=== PATIENT | male | born 1965 | race Caucasian/White ===

== ENCOUNTER 2025-03-30 21:35 | Emergency (ER) | payer OTHER, SELFPAY ==
[2025-03-30 21:37] VITALS: BP 139/82
[2025-03-30 21:47] VITALS: BP 141/97
--- NOTE | 2025-03-30 21:56 | ED.GENMED ---
History of Present Illness
General
Chief Complaint: Allergic Reaction
Source: patient
Time Seen by Provider: 03/30/25 21:49
History of Present Illness
History of Present Illness:
59-year-old male presents to the emergency room complaining of swelling of his face and lips which began about 2 hours ago. Over the past month or so the patient has been experiencing hives which come and go. They seem to appear different parts of
his body at different times. He was seen by a roll cutting operator to prescribe him a steroid, a cream of some sort as well as instructing him to take Benadryl and Claritin. Patient also prescribed Atarax recently. Medications have not seem to impact
the hives. However this evening is the first time he ever had swelling. He denies taking any medications for hypertension. He ate dinner about 2 hours prior to the onset of the facial swelling but denies consuming anything new or different.
Phy Exam
Physical Exam
Physical Exam:
General: Awake, Alert, Oriented X3. No acute distress.
Vitals: unremarkable
Head: Atraumatic
Eyes: Pupils equal, EOMI
Mouth: Mild angioedema noted both upper and lower lips.
Throat: Airway intact, no exudates, perhaps mild angioedema of the tongue
Neck: Trachea midline
Lungs: Clear and equal b/l
Heart: Regular rate, no murmurs
Abd: Soft, Nontender, No pulsatile mass
Neuro: Nonfocal
Skin: Warm, dry, urticarial rash noted upper and lower extremities and abdomen
Extremities: pulses equal b/l, no edema
Course
Orders/Labs/Results
Orders:
Orders
03/30/25 21:55
Electrocardiogram (*1) Stat
Reason for Study: Other
Other Reason for Exam: Allergy
Cardiac Monitoring- Treatment ONCE
EKG- Treatment ONCE
0.9% Sodium Chloride 500 ml [Nss] 500 ml IV BOLUS
Dexamethasone Sod Phosphate [Decadron] 10 mg IV NOW STA
Diphenhydramine [Benadryl] 50 mg IV NOW STA
EPINEPHrine PF [Adrenalin] 0.3 mg IM NOW STA
Famotidine [Pepcid] 20 mg IV NOW STA
03/30/25 22:08
Basic Metabolic Panel Urgent
Complete Blood Count/With Diff Urgent
Abnormal Lab Results
03/30/25
22:08
Glucose 100 H mg/dl
(70-99)
03/30/25 22:08
03/30/25 22:08
Vital Signs
Initial and Last Documented VS:
Initial Vital Signs
Temp Pulse Resp BP Pulse Ox
98.3 F 84 18 139/82 97
03/30/25 21:37 03/30/25 21:37 03/30/25 21:37 03/30/25 21:37 03/30/25 21:37
Last Documented Vital Signs
Temp Pulse Resp BP Pulse Ox
98.3 F 79 16 113/69 94
03/30/25 21:37 03/31/25 00:00 03/31/25 00:00 03/31/25 00:00 03/31/25 00:00
MDM/Problems Addressed
Differential Diagnosis Includes:
Angioedema from food allergy or medication allergy. Hereditary angioedema.
MDM/Problems Addressed:
Patient presents with mild angioedema of the upper and lower lip. Airway is patent arrival. He was given epi, Benadryl, Decadron and Pepcid. Patient had significant proved of his symptoms. He was observed for over 2 hours. He has been stable.
Patient will be discharged home. Prescription for an EpiPen sent to the pharmacy. Recommend he follow-up with an land development project manager. Return if his symptoms are worsening.
*Pulse Oximetry
Patient hypoxic: no
*Critical Care Note
Total Time (30-74mins, 75-104mins- exclusive of procedures): Not Applicable
ED Attending Note
-
Portions of this chart may have been created with voice recognition software.� Occasional wrong word or��sound alike� substitutions may have occurred due to the inherent limitations of voice recognition software.
Discharge Plan
Departure
Patient Disposition: Home (Routine Discharge)
Date of Disposition: 03/31/25
Time of Disposition: 00:15
Patient with high blood pressure during this ER visit?: No
Condition: Good
Discharge Problem:
[id number]
Instructions: Angioedema, Allergic reaction - ED discharge instructions
Prescriptions:
New
epinephrine [EpiPen 2-Arthur] 0.3 mg/0.3 mL auto-injector
0.3 mg IM Q5-15M PRN (Reason: anaphylaxis) Qty: 2 0RF
Referrals:
Jones Carmona MD [Family Provider] -
Rita Matson MD [Active] -
Activity Restrictions/Additional Instructions:
Call and make an appointment with Dr. Matson or one of her partner's CHANNING. Return to the ER if you feel your symptoms are worsening.
Interventions
Interventions:
*General Assessment Last Done: 03/30/25 21:37
*Neglect/Abuse Screening Last Done: 03/30/25 22:17
*ED- Fall Risk Assessment Last Done: 03/30/25 22:17
*ED COVID-19 Vaccine History Last Done: 03/30/25 21:37
*Nursing Disposition Last Done: 03/31/25 00:24
ED- Cardiac Assessment Last Done: 03/30/25 22:17
ED- Pulmonary Assessment Last Done: 03/30/25 22:17
ED-Skin Assessment Last Done: 03/30/25 22:30
Discharge Date and Time
Discharge Date/Time: 03/31/25 00:27
Print Language: TUVAL[place]
[2025-03-30 22:00] VITALS: BP 136/84
[2025-03-30] MEDS: ADRENALIN 0.3 MG IM (22:01)
[2025-03-30] MEDS: BENADRYL 50 MG IV (22:03)
[2025-03-30] MEDS: DECADRON 10 MG IV (22:05)
[2025-03-30] MEDS: NSS 500 IV (22:06)
[2025-03-30] MEDS: PEPCID 20 MG IV (22:07)
[2025-03-30 22:18] VITALS: BMI 28.6
[2025-03-30 22:18] LABS: % Eosinophils 0.8 % (0-6); % Immature Granulocytes 0.3 % (0-0.5); % Monocytes 6.4 % (1.7-9.3); % Neutrophils 65.5 % (42.2-75.2); Absolute Eosinophils 0.1 10^3/uL (0-0.7); Absolute Lymphocytes 1.7 10^3/uL (1.2-3.4); Absolute Monocytes 0.4 10^3/uL (0.1-0.6); Absolute Neutrophils 4.2 10^3/uL (1.4-6.5); Hematocrit 42.3 % (39.0-52.0); Hemoglobin 14.6 g/dL (13.0-18.0); Mean Corp Hgb Conc. 34.5 g/dL (33.0-37.0); Mean Corpuscular Volume 89.8 fL (80.0-94.0); Mean Platelet Volume 9.1 fL (7.4-10.4); Nucleated Red Blood Cells % 0 % (-); Platelet Count 278 10^3/uL (130-400); Red Blood Cell Count 4.71 10^6/uL (4.70-6.10); Red Cell Dist. Width 13.2 % (11.5-14.5); White Blood Cell Count 6.4 10^3/uL (4.8-10.8)
[2025-03-30 22:30] VITALS: BP 144/72
[2025-03-30 22:33] LABS: Blood Urea Nitrogen 20 mg/dl (9-20); Calcium 9.3 mg/dl (8.4-10.2); Carbon Dioxide 27 mmol/L (22-30); Chloride 106 mmol/L (98-107); Estimated Creatinine Clearance 71 ml/min; Glucose 100 mg/dl (70-99); Potassium 4.6 mmol/L (3.5-5.1); Sodium 141 mmol/L (135-145); eGFR > 60.00
[2025-03-30 23:00] VITALS: BP 125/60
[2025-03-30 23:30] VITALS: BP 121/75
[2025-03-31] VITALS: BP 113/69
== END 2025-03-31 00:27 | disposition home or self-care (01) ==
LOC: EMR 21:35
PROVIDERS: EMERGENCY PHYSICIAN Emergency Medicine; FAMILY PHYSICIAN Family Medicine
DX: T78.3XXA Angioneurotic edema, initial encounter (principal); X58.XXXA Exposure to other specified factors, initial encounter
CPT/HCPCS: 96374; 96375; 96372; 96361; 99284; 80048; 85025; 93005

== ENCOUNTER → 2025-10-28 18:12 | Outpatient (REF) | payer OTHER, SELFPAY | LOC: RAD 18:12 | PROVIDERS: ATTENDING PHYSICIAN Family Medicine; OTHER PHYSICIAN Internal Medicine Rheumatology | DX: M25.512 Pain in left shoulder (principal); M25.552 Pain in left hip; M25.551 Pain in right hip; M25.511 Pain in right shoulder | CPT/HCPCS: 73030; 73523 ==